=== PATIENT | male | born 1950 | race Caucasian/White ===

== ENCOUNTER 2018-03-30 17:11 | Observation (INO) | payer MEDICARE, BC ==
[2018-03-30 17:30] VITALS: RESP 18
[2018-03-30] MEDS ORDERED: SODIUM CHLORIDE 0.9% 1,000 ML IV STA (18:32)
--- NOTE | 2018-03-30 18:34 | ED ---
General Adult HPI - General Chief complaint: Arrhythmia/Palpitations Stated complaint: Palpitations Time Seen by Provider: 03/30/18 18:09 Source: patient, RN notes reviewed Mode of arrival: ambulatory Limitations: no limitations - History of Present Illness Initial comments: Patient is a pleasant 67-year-old male presenting to the emergency Department with complaints of palpitations. Patient had symptoms this morning. Symptoms lasted intimately for a few hours however now have resolved. Patient did have mild tightness in his chest when he was walking stairs earlier. No discomfort at this time. Patient may have had some mild similar symptoms previously. No associated dyspnea, nausea, or diaphoresis. Patient did see Dr. Lopez earlier today who advised him to come to the emergency department. - Related Data Home Medications Medication Instructions Recorded Confirmed Metoprolol Tartrate [Lopressor] 50 mg PO DAILY 03/30/18 03/30/18 Simvastatin 40 mg PO HS 03/30/18 03/30/18 amLODIPine [Norvasc] 5 mg PO DAILY 03/30/18 03/30/18 Allergies Allergy/AdvReac Type Severity Reaction Status Date / Time Penicillins Allergy Rash/Hives Verified 03/30/18 18:33 Review of Systems ROS Statement: Those systems with pertinent positive or pertinent negative responses have been documented in the HPI. ROS Other: All systems not noted in ROS Statement are negative. Constitutional: Denies: fever Eyes: Denies: eye pain ENT: Denies: ear pain Respiratory: Denies: cough Cardiovascular: Reports: as per HPI, chest pain, palpitations Endocrine: Denies: fatigue Gastrointestinal: Denies: abdominal pain Genitourinary: Denies: dysuria Musculoskeletal: Denies: back pain Skin: Denies: rash Neurological: Denies: weakness Past Medical History Past Medical History: Hyperlipidemia, Hypertension History of Any Multi-Drug Resistant Organisms: None Reported Past Surgical History: Cholecystectomy Past Psychological History: No Psychological Hx Reported Smoking Status: Never smoker Past Alcohol Use History: Occasional Past Drug Use History: None Reported General Exam Limitations: no limitations General appearance: alert, in no apparent distress Head exam: Present: atraumatic Eye exam: Present: normal appearance, PERRL ENT exam: Present: normal oropharynx Neck exam: Present: normal inspection Respiratory exam: Present: normal lung sounds bilaterally Cardiovascular Exam: Present: regular rate, normal rhythm, normal heart sounds Expanded Peripheral pulses: 2+: Radial (R), Radial (L), Posterior Tibialis (R), Posterior Tibialis (L) GI/Abdominal exam: Present: soft. Absent: tenderness Extremities exam: Present: normal inspection. Absent: pedal edema, calf tenderness Neurological exam: Present: alert Psychiatric exam: Present: normal affect, normal mood Skin exam: Present: normal color Course Vital Signs 03/30/18 03/30/18 03/30/18 17:27 18:52 19:21 Temperature 98.4 F Pulse Rate 48 L 65 Pulse Rate [ 85 Compliance Representative ] Respiratory 18 18 Rate Blood Pressure 157/88 147/90 O2 Sat by Pulse 96 96 Oximetry EKG Findings - EKG Comments: EKG Findings:: Normal sinus rhythm 67. NC 150. QRS 94. QT 412. QTC 435. Normal axis. Normal QRS. No acute ST change. Medical Decision Making - Medical Decision Making Patient does have several PVCs and some runs of bigeminy on the monitor. No chest discomfort at this time. Secondary to patient having chest discomfort with steps earlier case was discussed in detail with on-call admitting doctor Dr. Cabello covering for Dr. Lopze, who will admit with cardiology consult. - Lab Data Result diagrams: 03/30/18 18:50 03/30/18 18:50 Lab Results 03/30/18 03/30/18 03/30/18 Range/Units 18:50 18:50 18:50 WBC 9.0 (3.8-10.6) k/uL RBC 4.84 (4.30-5.90) m/uL Hgb 15.4 (13.0-17.5) gm/dL Hct 45.0 (39.0-53.0) % MCV 93.0 (80.0-100.0) fL MCH 31.8 (25.0-35.0) pg MCHC 34.2 (31.0-37.0) g/dL RDW 12.2 (11.5-15.5) % Plt Count 293 (150-450) k/uL Neutrophils % 68 % Lymphocytes % 22 % Monocytes % 5 % Eosinophils % 1 % Basophils % 1 % Neutrophils # 6.1 (1.3-7.7) k/uL Lymphocytes # 2.0 (1.0-4.8) k/uL Monocytes # 0.5 (0-1.0) k/uL Eosinophils # 0.1 (0-0.7) k/uL Basophils # 0.1 (0-0.2) k/uL PT (9.0-12.0) sec INR (<1.2) APTT (22.0-30.0) sec Sodium 140 (137-145) mmol/L Potassium 4.8 (3.5-5.1) mmol/L Chloride 106 (98-107) mmol/L Carbon Dioxide 25 (22-30) mmol/L Anion Gap 9 mmol/L BUN 17 (9-20) mg/dL Creatinine 0.85 (0.66-1.25) mg/dL Est GFR (CKD-EPI)AfAm >90 (>60 ml/min/1.73 sqM) Est GFR (CKD-EPI)NonAf >90 (>60 ml/min/1.73 sqM) Glucose 100 H (74-99) mg/dL Calcium 9.6 (8.4-10.2) mg/dL Magnesium 2.0 (1.6-2.3) mg/dL Total Bilirubin 0.6 (0.2-1.3) mg/dL AST 37 (17-59) U/L ALT 64 (21-72) U/L Alkaline Phosphatase 84 (38-126) U/L Total Creatine Kinase 73 (55-170) U/L CK-MB (CK-2) 0.6 (0.0-2.4) ng/mL CK-MB (CK-2) Rel Index 0.8 Troponin I <0.012 (0.000-0.034) ng/mL Total Protein 7.3 (6.3-8.2) g/dL Albumin 4.3 (3.5-5.0) g/dL TSH 3.170 (0.465-4.680) mIU/L Free T4 1.12 (0.78-2.19) ng/dL Free T3 pg/mL 3.2 (2.8-5.3) pg/ml 03/30/18 Range/Units 18:50 WBC (3.8-10.6) k/uL RBC (4.30-5.90) m/uL Hgb (13.0-17.5) gm/dL Hct (39.0-53.0) % MCV (80.0-100.0) fL MCH (25.0-35.0) pg MCHC (31.0-37.0) g/dL RDW (11.5-15.5) % Plt Count (150-450) k/uL Neutrophils % % Lymphocytes % % Monocytes % % Eosinophils % % Basophils % % Neutrophils # (1.3-7.7) k/uL Lymphocytes # (1.0-4.8) k/uL Monocytes # (0-1.0) k/uL Eosinophils # (0-0.7) k/uL Basophils # (0-0.2) k/uL PT 10.5 (9.0-12.0) sec INR 1.0 (<1.2) APTT 23.6 (22.0-30.0) sec Sodium (137-145) mmol/L Potassium (3.5-5.1) mmol/L Chloride (98-107) mmol/L Carbon Dioxide (22-30) mmol/L Anion Gap mmol/L BUN (9-20) mg/dL Creatinine (0.66-1.25) mg/dL Est GFR (CKD-EPI)AfAm (>60 ml/min/1.73 sqM) Est GFR (CKD-EPI)NonAf (>60 ml/min/1.73 sqM) Glucose (74-99) mg/dL Calcium (8.4-10.2) mg/dL Magnesium (1.6-2.3) mg/dL Total Bilirubin (0.2-1.3) mg/dL AST (17-59) U/L ALT (21-72) U/L Alkaline Phosphatase (38-126) U/L Total Creatine Kinase (55-170) U/L CK-MB (CK-2) (0.0-2.4) ng/mL CK-MB (CK-2) Rel Index Troponin I (0.000-0.034) ng/mL Total Protein (6.3-8.2) g/dL Albumin (3.5-5.0) g/dL TSH (0.465-4.680) mIU/L Free T4 (0.78-2.19) ng/dL Free T3 pg/mL (2.8-5.3) pg/ml - Radiology Data Radiology results: image reviewed (Chest x-ray shows no acute process) Disposition Clinical Impression: Chest discomfort, Palpitations Disposition: ADMITTED IP TO THIS HOSP Is patient prescribed a controlled substance at d/c from ED?: No Referrals: Familia Duran MD [Primary Care Provider] - 1-2 days Decision Time: 19:57
[2018-03-30 19:04] LABS: Basophils # (A) 0.1 k/uL (0-0.2); Basophils % (A) 1 %; Eosinophils # (A) 0.1 k/uL (0-0.7); Eosinophils % (A) 1 %; HGB 15.4 gm/dL (13.0-17.5); Lymphocytes % (A) 22 %; MCH 31.8 pg (25.0-35.0); MCHC 34.2 g/dL (31.0-37.0); Mean Platelet Volume 6.7; Monocytes # (A) 0.5 k/uL (0-1.0); Monocytes % (A) 5 %; Neutrophils # (A) 6.1 k/uL (1.3-7.7); Neutrophils % (A) 68 %; Platelet Count 293 k/uL (150-450); RBC 4.84 m/uL (4.30-5.90); RDW 12.2 % (11.5-15.5)
[2018-03-30 19:11] LABS: Partial Thromboplastin Time 23.6 sec (22.0-30.0); Prothrombin Time 10.5 sec (9.0-12.0)
--- NOTE | 2018-03-30 19:17 | XR ---
EXAMINATION: XR chest 2V DATE AND TIME: 03/30/2018 7:03 PM CLINICAL INDICATION: PHH; dysrhythmia TECHNIQUE: Departmental protocol COMPARISON: 02/13/2009 FINDINGS: EKG leads. The lungs are clear. The pleural spaces are negative. The cardiac silhouette is not enlarged. The skeletal structures and soft tissues are negative for acute findings. IMPRESSION: NO ACUTE PROCESS.
[2018-03-30 19:22] LABS: ALT 64 U/L (21-72); AST 37 U/L (17-59); Albumin 4.3 g/dL (3.5-5.0); Alkaline Phosphatase 84 U/L (38-126); Anion Gap 9 mmol/L; Blood Urea Nitrogen 17 mg/dL (9-20); Calcium 9.6 mg/dL (8.4-10.2); Carbon Dioxide 25 mmol/L (22-30); Chloride 106 mmol/L (98-107); Creatine Kinase 73 U/L (55-170); Glucose 100 mg/dL (74-99); Potassium 4.8 mmol/L (3.5-5.1); Sodium 140 mmol/L (137-145); Total Bilirubin 0.6 mg/dL (0.2-1.3); Total Protein 7.3 g/dL (6.3-8.2)
[2018-03-30 19:34] LABS: Creatine Kinase MB 0.6 ng/mL (0.0-2.4); Troponin I <0.012 ng/mL (0.000-0.034)
[2018-03-30 19:38] LABS: T4, Free (Free Thyroxine) 1.12 ng/dL (0.78-2.19)
[2018-03-30] MEDS ORDERED: ASPIRIN 81 MG PO STA (19:57)
[2018-03-30] MEDS ORDERED: NITROGLYCERIN SL TABS 0.4 MG TAB SUBLINGUAL PRN (19:57)
[2018-03-30 20:54] VITALS: BMI 31.9
[2018-03-30] MEDS ORDERED: DIAZEPAM 5 MG TAB PO STA (21:33)
[2018-03-30] MEDS ORDERED: NALOXONE 0.4 MG/ML 1 ML VIAL IV PRN (21:53)
[2018-03-30] MEDS ORDERED: cloNIDine HCL 0.1 MG TAB PO PRN (22:40)
--- NOTE | 2018-03-30 22:40 | P.HPIM ---
History of Present Illness H&P Date: 03/30/18 Chief Complaint: Palpitations 67-year-old male with history of hypertension and hyperlipidemia Patient presented to Hospital upon recommendations of his PCP to be evaluated by cardiology. Patient reports that he was climbing 3 flights of steps when he felt some chest tightness and skipping beats. But denies any chest pain trouble breathing dizziness lightheadedness nausea or vomiting or any syncope. He reported that he was getting these intermittent palpitations over the past month since his procedure of routine colonoscopy when he was told by the medical staff that he was having skipped beats. He was totally asymptomatic otherwise since then. However he was concerned that is getting these palpitation attacks off and on. Today decided to go and get evaluated. Patient denies any dizziness lightheadedness nausea vomiting syncope, denies any chest pain or trouble breathing, denies any fevers or chills. He reports a stress test that was done over 20 years ago due to family history of premature CAD in his dad. At that time the stress test was negative. Otherwise patient currently completely asymptomatic. Cardiac monitoring is showing bigeminy. His EKG upon presentation to the ED was unremarkable showing normal sinus rhythm. Patient labs reviewed and were unremarkable Review of Systems Pertinent positives as noted in HPI. All other systems were reviewed and are negative Past Medical History Past Medical History: Hyperlipidemia, Hypertension History of Any Multi-Drug Resistant Organisms: None Reported Past Surgical History: Cholecystectomy Past Anesthesia/Blood Transfusion Reactions: No Reported Reaction Past Psychological History: No Psychological Hx Reported Smoking Status: Never smoker Past Alcohol Use History: Occasional Past Drug Use History: None Reported - Past Family History Father Family Medical History: Coronary Artery Disease (CAD) Mother Family Medical History: CVA/TIA Medications and Allergies Home Medications Medication Instructions Recorded Confirmed Type Aspirin 81 mg PO DAILY 03/30/18 03/30/18 History Metoprolol Tartrate [Lopressor] 50 mg PO DAILY 03/30/18 03/30/18 History Simvastatin 40 mg PO DAILY 03/30/18 03/30/18 History amLODIPine [Norvasc] 5 mg PO DAILY 03/30/18 03/30/18 History Allergies Allergy/AdvReac Type Severity Reaction Status Date / Time Penicillins Allergy Rash/Hives Verified 03/30/18 20:44 Physical Exam Vitals: Vital Signs Temp Pulse Pulse Pulse Resp BP BP 03/30/18 20:45 98.3 F 60 18 164/76 03/30/18 19:21 65 18 147/90 03/30/18 18:52 85 03/30/18 17:27 98.4 F 48 L 18 157/88 Pulse Ox 03/30/18 20:45 97 03/30/18 19:21 96 03/30/18 18:52 03/30/18 17:27 96 Intake and Output 03/30/18 03/30/18 03/30/18 06:59 14:59 22:59 Other: # Voids 1 Weight 101.605 kg Constitutional: No acute distress, conversant, pleasant Eyes: Anicteric sclerae, moist conjunctiva, no lid-lag Pupils equal round reactive to light ENMT: NC/AT Oropharynx clear, large tonsils, no erythema, exudates Neck: Supple, FROM, no masses, or JVD No carotid bruits No thyromegaly Lungs: Clear to auscultation Clear to percussion Normal respiratory effort, no accessory muscle use Cardiovascular: Heart regular in rate and rhythm, No murmurs, gallops, or rubs No peripheral edema Abdominal: Soft Nontender, no guarding, rebound or rigidity Abdomen moving with respiration Normoactive bowel sounds No hepatomegaly, No splenomegaly No palpable mass No abdominal wall hernia noted Skin: Normal temperature, tone, texture, turgor No induration No subcutaneous nodules No rash, lesions No ulcers Extremities: No digital cyanosis No clubbing Pedal pulses intact and symmetrical Radial pulses intact and symmetrical No calf tenderness Psychiatric: Alert and oriented to person, place and time Appropriate affect fair judgment Neuro Muscles Strength 5/5 in all 4 extremities Sensation to light touch grossly present throughout Cranial nerves II-XII grossly intact No focal sensory deficits Lymphatics: Palpable tonsils, no palpable cervical or supraclavicular , or inguinal lymph nodes Results CBC & Chem 7: 03/30/18 18:50 03/30/18 18:50 Labs: Abnormal Lab Results - Last 24 Hours (Table) 03/30/18 Range/Units 18:50 Glucose 100 H (74-99) mg/dL Thrombosis Risk Factor Assmnt - Choose All That Apply Each Risk Factor Represents 2 Points: Age 61-74 years Thrombosis Risk Factor Assessment Total Risk Factor Score: 2 Thrombosis Risk Factor Assessment Level: Low Risk Assessment and Plan Assessment: 67-year-old male with history of hypertension hyperlipidemia admitted as observation with anticipated length of stay less than 48 hours due to intermittent palpitations patient went to his PCP who did an EKG and found evidence of frequent PVCs and bigeminy for which she sent him to the hospital for further evaluation. Currently patient denies any chest pain or trouble breathing or any other associated symptoms Plan: Intermittent palpitations asymptomatic Associated chest tightness during strenuous activity Rule out ACS Follow-up troponins Cardiac monitoring Cardiology consult in a.m. Accelerated hypertension Resume home medications Clonidine when necessary for systolic above 180 Hyperlipidemia continue statin Obesity patient counseled for weight loss and lifestyle modification DVT prophylaxis heparin subcu 3 times a day Surrogate decision-maker: *Patient CODE STATUS: Full code Discussed with: Patient, ER, RN Anticipated discharge: <[address]: Home A total of 55 minutes was spent on the care of this complex patient more than 50 % of the time was spent in counseling and care coordination.
[2018-03-30] MEDS: HEPARIN SODIUM,PORCINE 5,000 UNIT/ML 1 ML VIAL SQ SCH (23:41)
[2018-03-30] MEDS: NITROGLYCERIN OINT 1 INCH/GM PACKET TOPICAL SCH (23:41)
[2018-03-31 01:05] LABS: Creatine Kinase 67 U/L (55-170)
[2018-03-31 01:18] LABS: Creatine Kinase MB 0.5 ng/mL (0.0-2.4); Troponin I <0.012 ng/mL (0.000-0.034)
[2018-03-31] MEDS: NITROGLYCERIN OINT 1 INCH/GM PACKET TOPICAL SCH (04:00)
[2018-03-31 08:01] LABS: Cholesterol 185 mg/dL (<200); HDL Cholesterol 39 mg/dL (40-60); LDL Cholesterol,Calculated 118 mg/dL (0-99); Triglycerides 140 mg/dL (<150)
[2018-03-31 08:04] LABS: Creatine Kinase 63 U/L (55-170)
[2018-03-31 08:16] LABS: Creatine Kinase MB 0.4 ng/mL (0.0-2.4); Troponin I <0.012 ng/mL (0.000-0.034)
[2018-03-31] MEDS ORDERED: ATORVASTATIN 20 MG TAB PO SCH (09:00)
[2018-03-31] MEDS ORDERED: ASPIRIN 325 MG TAB PO SCH (09:00)
[2018-03-31] MEDS ORDERED: METOPROLOL TARTRATE 50 MG TAB PO SCH (09:00)
[2018-03-31] MEDS ORDERED: amLODIPine 5 MG TAB PO SCH (09:00)
[2018-03-31] MEDS: HEPARIN SODIUM,PORCINE 5,000 UNIT/ML 1 ML VIAL SQ SCH (09:32)
--- NOTE | 2018-03-31 10:10 | ECHOF ---
Referral Reason:Chest discomfort and palpitations MEASUREMENTS -------- HEIGHT: 177.8 cm WEIGHT: 101.6 kg BP: 136/75 RVIDd: 3.0 cm (< 3.3) IVSd: 1.4 cm (0.6 - 1.1) LVIDd: 5.2 cm (3.9 - 5.3) LVPWd: 1.4 cm (0.6 - 1.1) IVSs: 1.8 cm LVIDs: 3.3 cm LVPWs: 1.5 cm LA Diam: 3.9 cm (2.7 - 3.8) LAESV Index (A-L): 26.51 ml/m Ao Diam: 3.3 cm (2.0 - 3.7) AV Cusp: 2.3 cm (1.5 - 2.6) MV EXCURSION: 18.395 mm (> 18.000) MV EF SLOPE: 77 mm/s (70 - 150) EPSS: 0.6 cm MV E Scooby: 0.88 m/s MV DecT: 191 ms MV A Scooby: 0.99 m/s MV E/A Ratio: 0.89 AV maxP.02 mmHg AV meanP.38 mmHg FINDINGS -------- Sinus rhythm. This was a technically adequate study. The left ventricular size is normal. There is moderate concentric left ventricular hypertrophy. O verall left ventricular systolic function is normal with, an EF between 60 - 65 %. The right ventricle is normal in size. Normal LA size by volume 22+/-6 ml/m2. The right atrium is normal in size. The aortic valve is trileaflet and appears structurally normal. Peak/mean gradient across the Aorti c Valve is 14.02mmHg / 7.38mmHg. The mitral valve is normal. The tricuspid valve appears structurally normal. Trace/mild (physiologic) pulmonic regurgitation. The aortic root size is normal. IVC Not well visulized. There is no pericardial effusion. CONCLUSIONS -------- 1. Sinus rhythm. 2. This was a technically adequate study. 3. The left ventricular size is normal. 4. There is moderate concentric left ventricular hypertrophy. 5. Overall left ventricular systolic function is normal with, an EF between 60 - 65 %. 6. The right ventricle is normal in size. 7. Normal LA size by volume 22+/-6 ml/m2. 8. The right atrium is normal in size. 9. The aortic valve is trileaflet and appears structurally normal. 10. Peak/mean gradient across the Aortic Valve is 14.02mmHg / 7.38mmHg. 11. The mitral valve is normal. 12. The tricuspid valve appears structurally normal. 13. Trace/mild (physiologic) pulmonic regurgitation. 14. The aortic root size is normal. 15. IVC Not well visulized. 16. There is no pericardial effusion. SIGN MAINTENANCE: Maritza Rincon RDCS
--- NOTE | 2018-03-31 10:41 | P.CRDCN ---
History of Present Illness History of present illness: This is a pleasant 67 showed male past medical history significant for hypertension and dyslipidemia. 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 We have been asked to see him in consultation secondary palpitations. He states approximately one month ago he underwent a colonoscopy and was told he was having frequent "skipped beats". Since that time he has noticed an irregularity to his heart beat at times. He feels his pulse in his neck and he says he can feel that it is irregular. During this time he does notice that he is fatigued than usual. He denies any symptoms of chest discomfort, shortness of breath, dizziness or nausea, vomiting or diaphoresis. EKG reveals sinus mechanism with no acute ST or T-wave abnormalities noted. Chest x-ray is negative for acute cardiopulmonary process. Laboratory data reviewed, WBC 9.0, hemoglobin 15.4, platelets 293, sodium 140, potassium 4.8, creatinine 0.85, magnesium 2.0, cardiac enzymes negative 3, TSH 3.17, LDL 118 and HDL 39. Current cardiac medications include aspirin 81 mg daily, simvastatin 40 mg daily , amlodipine 5 mg daily and Lopressor 50 [place]'s daily. At the time of my exam: CONSTITUTIONAL: Denies fever. Denies chills. EYES: Denies blurred vision. Denies vision changes. Denies eye pain. EARS, NOSE, MOUTH & THROAT: Denies headache. Denies sore throat. Denies ear pain. CARDIOVASCULAR: Denies chest pain. Denies shortness of breath. Denies orthopnea. Denies PND. Denies palpitations. RESPIRATORY: Denies cough. GASTROINTESTINAL: Denies abdominal pain. Denies diarrhea. Denies constipation. Denies nausea. Denies vomiting. MUSCULOSKELETAL: Denies myalgias. INTEGUMENTARY: Denies pruitis. Denies rash. NEUROLOGIC: Denies numbness. Denies tingling. Denies weakness. PSYCHIATRIC: Denies anxiety. Denies depression. ENDOCRINE: Denies fatigue. Denies weight change. Denies polydipsia. Denies polyurina. GENITOURINARY: Denies burning, hematuria or urgency with micturation. HEMATOLOGIC: Denies history of anemia. Denies bleeding. Blood pressure 155/78 heart rate 70 afebrile maintaining oxygen saturation on room air GENERAL: This is a 67-year-old male in no apparent distress at the time of my examination. HEENT: Head is atraumatic, normocephalic. Pupils are equal, round. Sclerae anicteric. Conjunctivae are clear. Mucous membranes of the mouth are moist. Neck is supple. There is no jugular venous distention. No carotid bruit is heard. LUNGS: Clear to auscultation no wheezes, rales or rhonchi. No chest wall tenderness is noted on palpation or with deep breathing. HEART: Regular rate and rhythm without murmurs, rubs or gallops. S1 and S2 heard. ABDOMEN: Soft, nontender. Bowel sounds are heard. No organomegaly noted. EXTREMITIES: No evidence of peripheral edema and no calf tenderness noted. VASCULAR: Radial and dorsalis pedis pulses palpated, no evidence of clubbing. NEUROLOGIC: Patient is awake, alert and oriented x3. ASSESSMENT Palpitations, evidence of PVCs on telemetry with normal thyroid function and electrolytes. Hypertension Dyslipidemia PLAN 2-D echocardiogram and Doppler study has been obtained and will be reviewed. Perform stress echocardiogram to assess for stress-induced ischemia as well as any evidence of arrhythmia with maximum exercise. If stress test is normal he is stable from a cardiac perspective. Continue aspirin, simvastatin, amlodipine and Lopressor as previously ordered. Follow-up in the office with Dr. Man in 2 weeks. Thank you kindly for this consultation. Nurse Practitioner note has been reviewed, I agree with a documented findings and plan of care. Patient was seen and examined. Past Medical History Past Medical History: Hyperlipidemia, Hypertension History of Any Multi-Drug Resistant Organisms: None Reported Past Surgical History: Cholecystectomy Past Anesthesia/Blood Transfusion Reactions: No Reported Reaction Past Psychological History: No Psychological Hx Reported Smoking Status: Never smoker Past Alcohol Use History: Occasional Past Drug Use History: None Reported - Past Family History Father Family Medical History: Coronary Artery Disease (CAD) Mother Family Medical History: CVA/TIA Medications and Allergies Home Medications Medication Instructions Recorded Confirmed Type Aspirin 81 mg PO DAILY 03/30/18 03/30/18 History Metoprolol Tartrate [Lopressor] 50 mg PO DAILY 03/30/18 03/30/18 History Simvastatin 40 mg PO DAILY 03/30/18 03/30/18 History amLODIPine [Norvasc] 5 mg PO DAILY 03/30/18 03/30/18 History Allergies Allergy/AdvReac Type Severity Reaction Status Date / Time Penicillins Allergy Rash/Hives Verified 03/30/18 20:44 Physical Exam Vitals: Vital Signs Temp Pulse Pulse Pulse Resp BP BP 03/31/18 04:00 98.4 F 60 18 136/75 03/31/18 03:51 18 03/30/18 23:31 18 03/30/18 23:29 98.2 F 74 18 124/74 03/30/18 21:01 18 03/30/18 20:45 98.3 F 60 18 164/76 03/30/18 19:21 65 18 147/90 03/30/18 18:52 85 03/30/18 17:27 98.4 F 48 L 18 157/88 Pulse Ox 03/31/18 04:00 97 03/31/18 03:51 03/30/18 23:31 03/30/18 23:29 95 03/30/18 21:01 03/30/18 20:45 97 03/30/18 19:21 96 03/30/18 18:52 03/30/18 17:27 96 Intake and Output 03/30/18 03/31/18 03/31/18 22:59 06:59 14:59 Other: # Voids 1 1 Weight 101.605 kg Results 03/30/18 18:50 03/30/18 18:50 Cardiac Enzymes 03/30/18 03/30/18 03/31/18 Range/Units 18:50 18:50 00:24 AST 37 (17-59) U/L CK-MB (CK-2) 0.6 0.5 (0.0-2.4) ng/mL Troponin I <0.012 <0.012 (0.000-0.034) ng/mL Coagulation 03/30/18 Range/Units 18:50 PT 10.5 (9.0-12.0) sec APTT 23.6 (22.0-30.0) sec CBC 03/30/18 Range/Units 18:50 WBC 9.0 (3.8-10.6) k/uL RBC 4.84 (4.30-5.90) m/uL Hgb 15.4 (13.0-17.5) gm/dL Hct 45.0 (39.0-53.0) % Plt Count 293 (150-450) k/uL Comprehensive Metabolic Panel 03/30/18 Range/Units 18:50 Sodium 140 (137-145) mmol/L Potassium 4.8 (3.5-5.1) mmol/L Chloride 106 (98-107) mmol/L Carbon Dioxide 25 (22-30) mmol/L BUN 17 (9-20) mg/dL Creatinine 0.85 (0.66-1.25) mg/dL Glucose 100 H (74-99) mg/dL Calcium 9.6 (8.4-10.2) mg/dL AST 37 (17-59) U/L ALT 64 (21-72) U/L Alkaline Phosphatase 84 (38-126) U/L Total Protein 7.3 (6.3-8.2) g/dL Albumin 4.3 (3.5-5.0) g/dL Current Medications Generic Name Dose Route Start Last Admin Trade Name Freq PRN Reason Stop Dose Admin Amlodipine Besylate 5 mg 03/31/18 09:00 Norvasc PO DAILY [facility] Aspirin 325 mg 03/31/18 09:00 Aspirin PO DAILY [facility] Atorvastatin Calcium 20 mg 03/31/18 09:00 Lipitor PO DAILY [facility] Clonidine 0.1 mg 03/30/18 22:40 Catapres PO TID PRN Blood Pressure - High Heparin Sodium (Porcine) 5,000 unit 03/31/18 00:00 03/30/18 23:41 Heparin SQ 5,000 unit Q8HR [facility] Administration Metoprolol Tartrate 50 mg 03/31/18 09:00 Lopressor PO DAILY [facility] Naloxone HCl 0.2 mg 03/30/18 21:53 Narcan IV Q2M PRN Opioid Reversal Nitroglycerin 0.5 inch 03/31/18 00:00 03/31/18 04:00 Nitro-Bid Oint TOPICAL Not Given Q6HR [facility] Nitroglycerin 0.4 mg 03/30/18 19:57 Nitrostat SUBLINGUAL Q5M PRN Chest Pain Intake and Output 03/30/18 03/31/18 03/31/18 22:59 06:59 14:59 Other: # Voids 1 1 Weight 101.605 kg 03/30/18 18:50 03/30/18 18:50
[2018-03-31 11:36] VITALS: BP 136/69; PULSE 79; TEMP 98.2
--- NOTE | 2018-03-31 12:04 | ECHOS ---
STRESS ECHOCARDIOGRAM INDICATIONS: PVCs MEDICATIONS: Amlodipine, simvastatin, metoprolol tartrate, aspirin. BASELINE HEART RATE: 84 BASELINE BLOOD PRESSURE: 150/53 MAXIMUM HEART RATE: 145 MAXIMUM BLOOD PRESSURE: 190/76 85% MPHR: 131 100% MPHR: 154 METS: 8.7 MAXIMUM STAGE REACHED: 3 TOTAL EXERCISE TIME: 7:00 CLINICAL INFORMATION: History of palpitations and PVCs. Baseline heart rate 84 beats per minute. Baseline blood pressure 150/53 mmHg. Baseline 12-lead ECG shows sinus rhythm with 0.[address] upsloping depression at baseline and occasional PVCs with the left bundle branch block morphology, upright QRS in the inferior lead. Patient exercised on a Roberto protocol for 7 minutes achieving a peak heart rate of 145 beats per minute. Normal blood pressure response to exercise. There was suppression of PVCs with exercise and return of PVCs and occasional ventricular couplets at recovery. No nonsustained ventricular tachycardia. No sustained ventricular tachycardia. There was no ECG evidence for ischemia and the baseline 2D echo images were suboptimal; therefore, Definity contrast was used to delineate the in the LV endocardial borders. There was excellent augmentation of overall LV contractility at peak exercise as well as during recovery without developing any wall motion abnormalities. IMPRESSION: 1. Average exercise capacity. 2. Suppression of PVCs with exercise and PVCs into recovery. No nonsustained or sustained ventricular tachycardia and no ECG or echocardiographic evidence for ischemia based on this stress test with average exercise capacity. MARY / SHAYLAN: [id number] /
--- NOTE | 2018-03-31 13:24 | P.DS ---
Providers Date of admission: 03/30/18 19:57 Expected date of discharge: 03/31/18 Attending physician: Katelyn Singh MD Consults: 03/30/18 19:57 Consult Physician Urgent Consulting Provider: Claude Daugherty Consult Reason/Comments: Chest discomfort, palpitations Do you want consulting provider notified?: Yes Primary care physician: Familia Duran - Discharge Diagnosis(es) (1) Chest pain Current Visit: Yes Status: Acute (2) PVCs (premature ventricular contractions) Current Visit: Yes Status: Acute (3) Hypertension Current Visit: Yes Status: Acute (4) Hyperlipidemia Current Visit: Yes Status: Acute (5) Palpitations Current Visit: Yes Status: Acute Hospital Course: The patient is a 67-year-old male that was placed on observation on telemetry unit after presenting with complaints of chest discomfort and palpitations. EKG showed sinus mechanism with no acute ST or T wave abnormalities, further workup with's thyroid studies were unremarkable lungs chest x-ray was negative for any acute pulmonary process.His cardiac markers troponin was negative 3. Cardiology was consulted And 2-D echocardiogram performed showed normal LV ejection fraction of 60-65% and stress echocardiogram performed showed suppression of PVCs with exercise and into recovery and no echocardiographic evidence of ischemia was noted. The patient was subsequently cleared from cardiology and discharged home in stable condition. This discharge process took approximately 30 minutes. The patient is instructed to keep his follow-up appointment with Dr. Man in 2 weeks. Focused exam Cardiovascular: Regular rate and rhythm no murmurs rubs or gallops, PMI nondisplaced, no JVD or peripheral edema Patient Condition at Discharge: Good Plan - Discharge Summary New Discharge Prescriptions: Continue amLODIPine [Norvasc] 5 mg PO DAILY Simvastatin 40 mg PO DAILY Metoprolol Tartrate [Lopressor] 50 mg PO DAILY Aspirin 81 mg PO DAILY Discharge Medication List Aspirin 81 mg PO DAILY 03/30/18 [History] Metoprolol Tartrate [Lopressor] 50 mg PO DAILY 03/30/18 [History] Simvastatin 40 mg PO DAILY 03/30/18 [History] amLODIPine [Norvasc] 5 mg PO DAILY 03/30/18 [History] Follow up Appointment(s)/Referral(s): Joe Man MD [STAFF PHYSICIAN] - 1 Week (Patient may see Dr. Smalls in July or August if unable to make it to the appointment) Familia Duran MD [Primary Care Provider] - 1-2 days Discharge Disposition: HOME SELF-CARE
== END 2018-03-31 14:15 | disposition home or self-care (01) ==
LOC: EC 17:11 → 1SOBS 19:57
PROVIDERS: ADMIT Internal Medicine; ATTEND Internal Medicine
DX: R07.89 Other chest pain (principal); I49.3 Ventricular premature depolarization; I10 Essential (primary) hypertension; E78.5 Hyperlipidemia, unspecified; E66.9 Obesity, unspecified; Z68.32 Body mass index [BMI] 32.0-32.9, adult; Z79.82 Long term (current) use of aspirin; Z79.899 Other long term (current) drug therapy; Z88.0 Allergy status to penicillin; Z90.49 Acquired absence of other specified parts of digestive tract; Z82.49 Family history of ischemic heart disease and other diseases of the circulatory system; Z82.3 Family history of stroke
CPT/HCPCS: 93005 ×2; 96372; 96360; 96361; 99285; 36415; 94760; 93306; 84439; 84481; 80061; 80053; 82550 ×2; 82553 ×2; 83735; 84443; 84484 ×2; 85025; 85610; 85730; 71046; G0378 ×2; C8930; J1644; Q9950; 93351